=== PATIENT | male | born 1975 | race Caucasian/White ===

== ENCOUNTER 2017-04-08 14:58 | Emergency (ER) | payer MEDICAID ==
[2017-04-08 15:09] VITALS: BP 137/89
--- NOTE | 2017-04-08 15:39 | ERNOTE ---
Lower Extremity HPI - Narrative Date of Service: 04/08/17 - General Lower Extremities Pain: ankle: right Time Seen by Provider: 04/08/17 15:01 Source: patient Exam Limitations: no limitations - Immun/Allergies/Home Medications Immunizations: IMMUNIZATION HX Immunizations Up to Date No Allergies/Adverse Reactions: Allergies Allergy/AdvReac Type Severity Reaction Status Date / Time No Known Allergies Allergy Unverified 04/08/17 15:09 Home Medications: HOME MEDICATIONS Naproxen [Naprosyn] 500 mg PO BID PRN #60 tab 04/08/17 [Last Taken Unknown] - History of Present Illness Narrative: Pt. comes in with c/o R ankle and foot pain with ambulation after he was walking and felt a pop. Pt. denies any pain when he is resting or just flexing his foot. Pt. denies any SOB, CP, numbness, tingling, fever, recent illness, r injury. Pt. denies any prehospital treatment. Review of Systems - Review of Systems Constitutional: Present: no symptoms reported. Absent: recent illness, fever, chills, weakness, fatigue, malaise EYE: Present: no symptoms reported ENT: Present: no symptoms reported Respiratory: Present: no symptoms reported. Absent: shortness of breath, cough , wheezing Cardiology: Present: no symptoms reported. Absent: chest pain, palpitations, edema Gastrointestinal/Abdominal: Present: no symptoms reported. Absent: nausea, vomiting, diarrhea Genitourinary: Present: no symptoms reported Musculoskeletal: Present: joint pain - R ankle. Absent: back pain Skin: Present: no symptoms reported. Absent: rash, change in color Neurological: Present: no symptoms reported. Absent: headache, dizziness/light- headedness, numbness, tingling All Other Systems: All systems neg except as marked - Patient's Past Medical History Patient History - Medical: No pertinent hx - Social History Living Situations: home Smoking Status: Current every day smoker - Immunizations Immunizations Up to Date: No Physical Exam - Physical Exam General Appearance: Present: wd/wn, alert, no apparent distress Head Exam: Present: normal inspection, no evidence of injury Eye Exam: Normal inspection: bilateral Neck: Present: normal inspection. Absent: lymphadenopathy (R), lymphadenopathy (L) Respiratory: Present: no respiratory distress, normal breath sounds, no accessory muscle use, chest nontender, lungs clear Cardiovascular/Chest: Present: regular rate, rhythm, no murmur, normal peripheral pulses Back Exam: Present: normal inspection Extremity Exam: Present: other - tenderness of the R fibularlateral ligament. Absent: pedal edema, bony tenderness, joint swelling Neurological Exam: Present: alert, oriented, normal mood/affect, no motor/ sensory deficits Skin Exam: Present: normal color, warm/dry. Absent: pallor, skin rash ED Progress - Vital Signs Patient's Vital Signs:: I have reviewed the patient's vital signs. Vital Signs: Vital Signs 04/08/17 15:02 Temperature 37.3 C Pulse Rate 84 Respiratory 16 Rate Blood Pressure 137/89 O2 Sat by Pulse 97 Oximetry - X-Ray X-Ray #1 X-Ray: ankle Interpretation: Reviewed by me X-ray Comments: no obvious acute fractures noted. - Progress/Reassessment Chief Complaint: Lower Extremity Pain/ Injury Departure Clinical Impression: Sprain - Departure Disposition: Home self-care Condition: Good Instructions: Ankle Sprain Additional Instructions: Leave ankle wrapped for one week and rest with foot elevated above heart and if still bothering you in a week please follow up with orthopedics. Referrals: Ilan Cuellar MD [Primary Care Provider] - Gianluca Garcia MD [Staff Physician] - Prescriptions: Naproxen [Naprosyn] 500 mg PO BID PRN #60 tab PRN Reason: Pain
== END 2017-04-08 15:53 | disposition home or self-care (01) ==
LOC: ER 14:58
DX: S93.401A Sprain of unspecified ligament of right ankle, initial encounter (principal); W19.XXXA Unspecified fall, initial encounter; Y93.89 Activity, other specified; Y92.9 Unspecified place or not applicable; Y99.9 Unspecified external cause status